=== PATIENT | female | born 1955 | race African-American/Black ===

== ENCOUNTER 2017-01-29 12:29 | Emergency (ER) | payer OTHER ==
[~2017-01-29 12:29] MED LIST: *UNABLE2; ACCUNEB INH; ACET500CAP PO; AMIT10 PO; ANTIDEPRESSANT; APRES50 PO; ASA5GR PO; ASAB PO; B-COMPLEX/1 PO; BEN25 PO; BUSPAR15 M1 PO; CAT1 PO; CAT2 PO; CAT3 PO; CELEXA10 PO; CELLCEPT5 PO; CHLORASEPTIC1.4 % PO; CIP5; CLARIT10 PO; CONSTULOSE PO; COREG PO; COREG12 PO; COREG3 PO; COREG6 PO; COUGH DROPS PO; DITRO5 PO; FL250 PO; FLAG500TAB PO; FLONASE NAS; FLORASTOR250 MG PO; HALF81 PO; IMDUR30 PO; INSNOVR SC; ISOSORB DIN30 MG PO; KENCR.1 TOP; LANTUS SC; LAXATIVE PO; LEVAQUIN750 MG PO; LEVEMIR SC; LISINOPRIL40 MG PO; LORTAB 5 PO; MAGOX4 PO; MEGACEUDL PO; NEUR100 PO; NEUR300 PO; NEXIUM40 PO; NORCO1 TA1 PO; NORCO1 TA2 PO; NORV10 PO; NORV5 PO; NORVASC PO; NOVOLOG SC; NOVOPEN SC; NYSTATPOW TOP; NYSTOP100000 MG TOP; OMNICEF300 PO; PEP20 PO; PERCOCET1 TA2 PO; PHOSLO PO; PLAVIX PO; PR25 PO; PREV30 PO; PRILO PO; PRIN10 PO; PRIN20 PO; PROAIR HFA INH; PROBIOTIC OTC PO; PROBIOTIC PO; PROTONIX PO; PROTONIX20 MG PO; PROVENTSOL INH; PROVHFA INH; PULRESP1 INH; REG5 PO; REGL PO; SALAGEN5 M1 OR; SALAGEN5 M1 PO; SENSIPAR30 M1 OR; SENSIPAR30 M1 PO; SENSIPAR30 MG PO; SODBICAR10 PO; SORB PO; SPIRIVA INH; SUCR PO; SYMBICORT 160/41 INH INH; SYMBICORT 80/4.1 INH INH; T PO; TESS PO; TRIAMCINOLON0.13 TOP; TRIAMCINOLONE C80 GM TOP; TRIDERM0.1 % TOP; ULTRAM50 PO; VALTREX1 GM PO; VANC125UDL PO; VENTOLIN HFA INH; VITE PO; VYTORIN; VYTORIN 10/40 T1 TAB PO; XENADERM60 GM T; Z-PAK PO; ZESTRIL10 MG PO; ZESTRIL30 MG PO; ZOFRAN4 PO; ZOFRAN8 PO; ZOL100 PO; ZYVOXPO PO; [UNRECOGNIZED DRUG - OTHER] PO; [UNRECOGNIZED DRUG - REMARK]; [UNRECOGNIZED DRUG - REMARK] TOP
[2017-01-29 13:19] LABS: BASOPHILS 0.1 %; BASOPHILS ABSOLUTE 0.01 10/3/uL (0.0-0.16); EOSINOPHILS 1.6 %; EOSINOPHILS ABSOLUTE 0.11 10/3/uL (0.0-0.53); ER CBC TAT 0 Hrs 03 Mins; HEMATOCRIT 24.5 % (36.0-48.0); LYMPHOCYTES 23.3 %; LYMPHOCYTES ABSOLUTE 1.56 10/3/uL (0.67-4.30); MEAN CORPUS HGB CONC 32.7 g/dL (32.0-36.0); MEAN CORPUSCULAR HEMOGLOB 32.8 pg (26.0-34.0); MEAN PLATELET VOLUME 9.6 fL (9.2-13.0); MONOCYTES ABSOLUTE 0.47 10/3/uL (0.21-1.20); NEUTROPHILS ABSOLUTE 4.54 10/3/uL (2.02-8.40); PLATELET COUNT 115 10/3/uL (150-400); RBC DISTRIBUTION WIDTH 15.3 % (12.0-16.0); RED CELL COUNT 2.44 10/6/uL (4.0-5.6); WHITE BLOOD CELLS 6.7 10/3/uL (4.5-10.5)
[2017-01-29 13:21] LABS: MANUAL DIFF NO %; MEAN CORPUSCULAR VOLUME 100.4 fL (80-100)
[2017-01-29 13:31] LABS: INTERNATIONAL NORMAL RATI 1.1 UNITS (-); PROTIME (NOT ORD) 13.8 SEC (12.0-14.5)
[2017-01-29 13:32] LABS: PARTIAL THROMBO TIME 31.9 SEC (22.5-37.2)
[2017-01-29 13:36] LABS: BUN (BLOOD UREA NITROGEN) 56 MG/DL (6-23); CALCIUM, SERUM 8.9 MG/DL (8.5-10.4); CHLORIDE, SERUM 97 MMOL/L (96-112); CO2 (CARBON DIOXIDE) 29 MMOL/L (24-34); CREATININE 6.69 MG/DL (0.55-1.02); GFR AFRICAN AMERICAN 7 ML/MIN (>=60); GFR NON AFRICAN AMERICAN 6 ML/MIN (>=60); POTASSIUM, SERUM 4.8 MMOL/L (3.5-5.3); SODIUM, SERUM 137 MMOL/L (135-148)
[2017-01-29 13:37] LABS: CHEST PAIN PROFILE TAT 0 Hrs 21 Mins; GLUCOSE, SERUM 100 MG/DL (60-99); TROPONIN I 0.09 NG/ML (<0.05)
[2017-05-03] MEDS ORDERED: COD LIVER OIL PO (15:16)
[2017-05-03] MEDS ORDERED: TRIAMCINOLONE C80 GM TOP (15:21)
[2017-05-03] MEDS ORDERED: VISINE TEARS15 ML OPH (15:21)
[2017-05-03] MEDS ORDERED: PHOSLO PO ×2 (15:22)
[2017-05-03] MEDS ORDERED: FLONASE NAS (15:22)
[2017-05-03] MEDS ORDERED: VENTOLIN HFA INH (15:22)
[2017-05-03] MEDS ORDERED: IMDUR30 PO (15:23)
[2017-05-03] MEDS ORDERED: NEUR100 PO (15:23)
[2017-05-03] MEDS ORDERED: NORV10 PO (15:23)
[2017-05-03] MEDS ORDERED: ULTRAM50 PO (15:23)
[2017-05-03] MEDS ORDERED: COREG3 PO (15:24)
[2017-05-03] MEDS ORDERED: MELATONIN5 M1 PO (15:24)
[2017-05-03] MEDS ORDERED: CONSTULOSE PO (15:24)
[2017-05-03] MEDS ORDERED: HALF81 PO (15:24)
[2017-05-03] MEDS ORDERED: SPIRIVA INH (15:25)
[2017-05-03] MEDS ORDERED: NOVOLOG SC ×2 (15:25)
[2017-05-03] MEDS ORDERED: VALTREX5 PO (15:26)
[2017-05-03] MEDS ORDERED: LANTUS SC (15:26)
[2017-05-03] MEDS ORDERED: PR25 PO (15:26)
[2017-05-03] MEDS ORDERED: PRIN10 PO (15:26)
[2017-05-03] MEDS ORDERED: VYTORIN 10/40 T1 TAB PO (15:27)
[2017-05-03] MEDS ORDERED: SENSIPAR30 M1 PO (15:27)
[2017-05-03] MEDS ORDERED: SYMBICORT 160/41 INH INH (15:27)
[2017-05-03] MEDS ORDERED: PROTONIX PO (15:27)
== END 2017-01-29 14:35 | disposition home or self-care (01) ==
LOC: ER 12:29
PROVIDERS: Emergency Medicine
DX: D64.9 Anemia, unspecified (principal); I12.9 Hypertensive chronic kidney disease with stage 1 through stage 4 chronic kidney disease, or unspecified chronic kidney disease; N18.9 Chronic kidney disease, unspecified; Z99.2 Dependence on renal dialysis; E11.22 Type 2 diabetes mellitus with diabetic chronic kidney disease; Z91.041 Radiographic dye allergy status; Z88.2 Allergy status to sulfonamides; Z88.5 Allergy status to narcotic agent; Z88.8 Allergy status to other drugs, medicaments and biological substances; Z79.82 Long term (current) use of aspirin; Z79.4 Long term (current) use of insulin
CPT/HCPCS: 36415; 71020; 80048; 83735; 84484; 85025; 85610; 85730; 86850; 86900; 86901; 86920; 93005; 99285

== ENCOUNTER 2017-02-20 07:27 | Inpatient (IN) | payer OTHER ==
--- NOTE | ~2017-02-20 | HP ---
History And Physical [id number] [place]. [address] NAME: SEAN MCCLAIN : 53 STATUS : ADM IN [facility]#: [id number] AGE: 61 ADM/REG DATE : 02/20/17 MR#: [id number] REPORT SERV DATE: 02/20/17 DICTATED BY: DATE: REPORT STATUS : Draft TRANSCRIBED BY: MODL DATE: 02/20/17 DATE OF ADMISSION: 02/20/2017 CHIEF COMPLAINT: Abdominal pain, fever, diarrhea. HISTORY OF PRESENT ILLNESS: Ms. Mcclain is a very pleasant 61-year-old black female with end- stage renal disease, who has a quite extensive past medical history that includes ischemic bowel, colonic stricture, GI bleeding, she is transfusion dependent, end-stage renal disease, not a surgical candidate in the past. She dialyzes at [facility]. She states that yesterday she was feeling well, went to get some diabetic shoes, and then while she was at the store, developed abdominal pain, described it as knotting feeling across both sides of her abdomen. She denied any fevers or chills. Then, began having diarrhea last night as well as nausea, therefore presented to the emergency department. In the emergency department, she was found to have significant elevation in lipase and LFTs. She was found to be febrile, also now she has low blood pressures in the 80s, and she has been admitted for further evaluation. PAST MEDICAL HISTORY: End-stage renal disease, COPD, diabetes, ischemic bowels; colonic stricture, not a surgical candidate; anemia, requiring transfusions routinely; obstructive sleep apnea, failed kidney transplant, diabetes, hypertension, obstructive sleep apnea, peripheral vascular disease. FAMILY MEDICAL HISTORY: Positive for CKD. SOCIAL HISTORY: She lives with sister. No tobacco, alcohol, or illicit drug use. ALLERGIES: SULFA, ACETAMINOPHEN, ADHESIVE TAPE, CHLORHEXIDINE, STRAWBERRY, LYRICA, ROBAXIN, LOOP DIURETICS. REVIEW OF SYSTEMS: 12-point review of systems obtained and is negative with the exception that in HPI. PHYSICAL EXAMINATION: VITAL SIGNS: Temperature 100.9, blood pressure 107/53, pulse 85, respiratory rate 20, O2 saturation is 96%. GENERAL: This is an ill-appearing black female. She will awake and answer questions. HEENT: Normocephalic, atraumatic. Conjunctivae clear. Sclerae anicteric. Oral mucosa is dry. She does have some periorbital edema. NECK: No lymphadenopathy. Neck veins flat. RESPIRATIONS: Even and unlabored. Breath sounds clear to auscultation. HEART: Rate is regular. Systolic murmur. No rub or gallop. ABDOMEN: Obese, soft. She has some mild tenderness across the upper abdomen especially in the epigastric region. Bowel sounds active. Abdomen is soft. EXTREMITIES: No edema, cyanosis, or clubbing. SKIN: Warm, dry, and intact. No unusual rash or skin lesions. NEURO: No generalized weakness. No focal deficits. Mood and affect, flat but appropriate. History And Physical [address] [address] NAME: SEAN MCCLAIN : 53 STATUS : ADM IN [facility]#: [id number] AGE: 61 ADM/REG DATE : 02/20/17 MR#: [id number] REPORT SERV DATE: 02/20/17 DICTATED BY: DATE: REPORT STATUS : Draft TRANSCRIBED BY: MODL DATE: 02/20/17 PERTINENT LABORATORIES AND X-RAYS: WBCs 5.5, H and H 10 and 29, platelets 99,000. Chest x- ray negative. CT of the abdomen with chronic gallbladder inflammation with pericholecystic edema and high-density continence of the gallbladder, looks to be stones, common bile duct stone cannot be excluded, looks like chronic cholecystitis, primary rectal anastomosis with wall thickening of the rectum up to 1 cm, diffuse mesenteric edema, severe atrophy of kidneys. Sodium 142, potassium 4.3, chloride 103, CO2 of 29, BUN of 80, creatinine 8.4, magnesium of 1.2, bilirubin 2, alkaline phosphatase 450, SGOT of 1780, SGPT of 1273[place] [address], troponin 0.11. IMPRESSION: 1. Abdominal pain. 2. Nausea, vomiting. 3. Diarrhea, fever. 4. Elevated LFTs. 5. Chronic cholecystitis, felt not to be a surgical candidate in the past. 6. History of ischemic bowel with colonic stricture. 7. Transfusion-dependent anemia. 8. End stage renal disease. PLAN: Admit antibiotics, GI consult, blood cultures. We would try to clarify code status, for now she is a full code. Further orders and recommendations pending clinical course. JUAN M/NAKIA JANI Bunn / [id number] CC: Adarsh Bruce M.D.
--- NOTE | ~2017-02-20 | CN ---
Consultation Report [facility] [address] [place]. [address] NAME: SEAN HAQUE : 53 STATUS : ADM IN PAT#: [id number] AGE: 61 ADM/REG DATE : 02/20/17 MR#: [id number] REPORT SERV DATE: 02/21/17 DICTATED BY: EILEEN MCKEON DATE: 02/21/17 REPORT STATUS : Draft TRANSCRIBED BY: MODL DATE: 02/21/17 GI CONSULTATION DATE OF CONSULTATION: 02/21/2017 REASON FOR CONSULTATION: Elevated liver enzymes, elevated lipase. HISTORY OF PRESENT ILLNESS: Ms. Haque is a 61-year-old black female with a history of end- stage renal disease, on hemodialysis; history of iron-deficiency anemia for which she has been followed by Dr. Monty Hoffman for further evaluation of this and ischemic colitis. She also has a colonic stricture chronically and has been deemed not a surgical candidate for further management. She was admitted to [facility] on 02/20/2017 with acute onset of abdominal pain and diarrhea. This occurred after she had 2 episodes of syncope, the latter of which she was at dialysis and noted to have a systolic blood pressure in the 80s. At home, her sister, with whom she lives, said she was unresponsive and at dialysis, she also became unresponsive. She had been afebrile. Her white count is 6.8. Her liver enzymes were found to be very elevated for which GI was consulted. Her bilirubin yesterday was 2, AST 1780, ALT 4273, alkaline phosphatase 450, lipase 42498. Today, her bilirubin is 3, AST 504, ALT 681, alkaline phosphatase 383. Viral hepatitis panel was drawn and is pending at this time. Ultrasound was also performed, but report is pending and imaging are pending at this time. CT scan showed normal-appearing liver. Gallbladder was at the upper limit of normal with requiring distention at 3.4 cm. There was some pericholecystic inflammation with stranding at the neck, which is unchanged from her imaging in May 2016. She did not have any distended loops of small bowel. Her stomach was mildly distended, but the colonic wall thickening at the anastomosis measured about 1 cm, was actually noted to be improved from her May 2016 imaging. Currently, her vital signs are stable, blood pressure is 120s over 80s, heart rate is in the 70s. She is admitted to the [facility]. PAST MEDICAL HISTORY: End-stage renal disease, on hemodialysis; iron deficiency anemia; ischemic colitis; gallbladder abscess with drainage; COPD; diabetes; hypertension; morbid obesity with obstructive sleep apnea; peripheral vascular disease; chronic colonic stricture; and history of C. diff in the past. PAST SURGICAL HISTORY: Hysterectomy, and failed kidney transplant. SOCIAL HISTORY: Denies any smoking, alcohol, or drug use. FAMILY HISTORY: No GI disease. MEDICATIONS: Reviewed. ALLERGIES: REVIEWED. PHYSICAL EXAMINATION: Consultation Report [address] [place]. [address] NAME: SEAN HAQUE : 53 STATUS : ADM IN [facility]#: [id number] AGE: 61 ADM/REG DATE : 02/20/17 MR#: [id number] REPORT SERV DATE: 02/21/17 DICTATED BY: EILEEN MCKEON DATE: 02/21/17 REPORT STATUS : Draft TRANSCRIBED BY: NAKIA DATE: 02/21/17 VITAL SIGNS: The patient is afebrile. Her vital signs have been stable. GENERAL: The patient is awake, alert, and oriented x3. Morbidly obese, in no acute distress. HEENT: Atraumatic, normocephalic. Anicteric. Mucous membranes moist. CARDIAC: S1, S2. CHEST: Clear. ABDOMEN: Soft. Minimal tenderness to palpation without any rebound or guarding, mostly in the epigastrium. Bowel sounds normoactive. LABORATORY DATA: Show WBC 6.8, hemoglobin 8.3, hematocrit 24.8, MCV is 96, platelets 89. Sodium 143, potassium 4.2, chloride 106, bicarbonate 30, BUN 38, creatinine 5.76, glucose 112, INR 1.3. Bilirubin 3, AST 504, ALT 681, alkaline phosphatase 383, lipase from yesterday [address]. No repeat drawn. CT scan as described above. IMPRESSION AND PLAN: Elevated liver enzymes, most likely secondary to ischemic hepatitis, very few causes of hypertransaminasemia as high as hers were yesterday, that being ischemic hepatitis/hypotension, acute viral hepatitis, toxic injury. Awaiting ultrasound performed and awaiting viral hepatitis panel; however, given the patient's clinical history with syncope and hypotension, with an underlying peripheral vascular disease, diabetes, hypertension, and end-stage renal disease, this is most likely the etiology. Continue supportive care. Follow up on studies already ordered. We will also check lipase and trend this, and PT/INR for evaluation of liver function. Okay to start clear liquid renal diet at this time. CS/MODL Eileen Mckeon MD / [id number] CC: Daryl Pedraza M.D.
--- NOTE | ~2017-02-20 | DS ---
Discharge Summary [facility] [address] [place]. [address] NAME: SEAN MCCLAIN : 53 STATUS : DIS IN PAT#: [id number] AGE: 61 ADM/REG DATE : 02/20/17 MR#: [id number] REPORT SERV DATE: 03/10/17 DICTATED BY: MERY PEDRAZA DATE: 03/10/17 REPORT STATUS : Draft TRANSCRIBED BY: NAKIA DATE: 03/10/17 Data Collection from hospitalization DISCHARGE DIAGNOSES: 1. Fluid retention/noncompliance. 2. Oqt-vwtpitg-ueekpmgta diabetes. 3. Obesity. 4. Hypertension. 5. End-stage renal disease. 6. History of ischemic bowel. 7. Anemia. 8. Obstructive sleep apnea. 9. History of failed kidney transplant. 10.Peripheral vascular disease. CONSULTATION: Dr. Becky Spears. PROCEDURES PERFORMED: 1. CT scan of the abdomen and pelvis without contrast, 02/20/2017. 2. Abdominal ultrasound, 02/21/2017. 3. Venous Doppler ultrasound of the right upper extremity, 02/24/2017. DISCHARGE MEDICATIONS: Halfprin 80 mg daily, Coreg 6.25 mg twice a day, Flonase nasal spray one spray nasally twice a day, Neurontin 100 mg four times a day, Lantus 18 units subcutaneously at bedtime, Isordil 30 mg twice a day, lactulose 30 mL three times a day, Prinivil 30 mg daily, Protonix 40 mg daily, phosphorus 250 mg twice a day for seven days, Benadryl 25 mg every eight hours as needed, [place] 10/325 one tablet three times a day as needed, and Spiriva HandiHaler one capsule via inhaler daily. CONDITION AT DISCHARGE: Stable. DISPOSITION: The patient was discharged to [facility] with diet and activities as instructed. HOSPITAL COURSE: This is a 61-year-old female, who has end-stage renal disease, who has a quite extensive past medical history, including ischemic bowel, colon stricture, GI bleeding. She is transfusion dependent with end-stage renal disease. She had not been a surgical candidate in the past. She dialyzes at [facility] on [facility]. She states that on the day prior to this admission, she felt well and went to get some diabetic shoes. While she was at the store, she developed abdominal pain and described it as a knot feeling across the sides of her abdomen. She denied any fever or chills. She then began to have diarrhea as well as nausea and presented to the emergency department. In the emergency department, she was found to have significant elevation in lipase and liver function tests. She was found to be febrile and also had a low blood pressure in the 80s. She was admitted to the hospital at this time for further evaluation and treatment. Upon admission, a CT scan of the abdomen revealed chronic gallbladder inflammation with pericholecystic edema and high density continence of the gallbladder with what looked to be Discharge Summary [id number] [facility] [place]. [address] NAME: SEAN MCCLAIN : 53 STATUS : DIS IN PAT#: [id number] AGE: 61 ADM/REG DATE : 02/20/17 MR#: [id number] REPORT SERV DATE: 03/10/17 DICTATED BY: MERY PEDRAZA DATE: 03/10/17 REPORT STATUS : Draft TRANSCRIBED BY: NAKIA DATE: 03/10/17 stones. A common bile duct stone could not be excluded. This looks like chronic cholecystitis. There was primary rectal anastomosis with wall thickening of the rectum up to 1 cm and diffuse mesenteric edema and severe atrophy of the kidneys. Creatinine level was 8.4. Blood cultures were obtained. The following day, she was seen by Dr. Becky Spears regarding elevated liver enzymes and elevated lipase. The patient was currently in the IMCU. The elevated liver enzymes were felt most likely secondary to ischemic hepatitis. There were very few causes of hypertransaminasemia as high as hers was the day previously- that being ischemic hepatitis/hypotension, acute viral hepatitis or toxic injury. An ultrasound of the abdomen was performed. We were awaiting a viral hepatitis panel. It was felt that this was the most likely etiology. Supportive care continued. Lipase was going to be checked and would be trended. A clear liquid diet was going to began. On 02/22/2017, she was up sitting in a chair. She was tolerating clear liquids. She was going to be transferred to the floor. The next day, dialysis therapy was performed. She was in no acute distress. Lipase was going to be rechecked. Her diet was advanced. She had no nausea, vomiting, or diarrhea. PhosLo was discontinued. A venous Doppler ultrasound of the right upper extremity was performed. This was normal. On 02/25/2017, she did complain of some shortness of breath and chest pain that morning. Her abdomen was distended. Lipase level was now 306. Troponins were going to be checked. Hemodialysis therapy continued. The patient is morbidly obese. The patient was on fluid restriction. Antibiotics were discontinued. She was evaluated by Occupational and Physical Therapy. Over the next couple of days, she continued to progress. Discharge planning was performed. On 02/28/2017, discharge instructions were given. Due to her improved and stable condition, she was discharged to [facility] with the above-stated instructions. Information collected by: Franca Cabral I submit the above information as my discharge summary. ELIO/NAKIA Mery Pedraza M.D. / [id number] CC: Adarsh Bruce M.D. [facility] Becky Spears MD
[2017-02-20 07:39] LABS: BASOPHILS 0.2 %; BASOPHILS ABSOLUTE 0.01 10/3/uL (0.0-0.16); EOSINOPHILS 0.6 %; EOSINOPHILS ABSOLUTE 0.03 10/3/uL (0.0-0.53); IMMATURE GRANULOCYTES 0.6 %; IMMATURE GRANULOCYTES ABSOLUTE 0.03 10/3/uL (0.0-0.11); LYMPHOCYTES 6.8 %; LYMPHOCYTES ABSOLUTE 0.37 10/3/uL (0.67-4.30); MEAN CORPUS HGB CONC 33.8 g/dL (32.0-36.0); MEAN CORPUSCULAR HEMOGLOB 32.6 pg (26.0-34.0); MEAN PLATELET VOLUME 10.2 fL (9.2-13.0); MONOCYTES 7.5 %; MONOCYTES ABSOLUTE 0.41 10/3/uL (0.21-1.20); NEUTROPHILS 84.3 %; PLATELET COUNT 99 10/3/uL (150-400); RBC DISTRIBUTION WIDTH 15.1 % (12.0-16.0); WHITE BLOOD CELLS 5.5 10/3/uL (4.5-10.5)
[2017-02-20 07:40] LABS: HEMATOCRIT 29.6 % (36.0-48.0); MANUAL DIFF NO %; MEAN CORPUSCULAR VOLUME 96.4 fL (80-100); RED CELL COUNT 3.07 10/6/uL (4.0-5.6)
[2017-02-20 07:45] LABS: INTERNATIONAL NORMAL RATI 1.3 UNITS (-); PARTIAL THROMBO TIME 28.5 SEC (22.5-37.2); PROTIME (NOT ORD) 15.6 SEC (12.0-14.5)
[2017-02-20 08:02] LABS: A/G RATIO 0.7 (0.7-1.9); ALBUMIN 2.9 G/DL (3.5-5.0); CALCIUM, SERUM 9.2 MG/DL (8.5-10.4); CHLORIDE, SERUM 103 MMOL/L (96-112); CO2 (CARBON DIOXIDE) 29 MMOL/L (24-34); POTASSIUM, SERUM 4.3 MMOL/L (3.5-5.3); SGOT(AST) 1780 U/L (5-40); SGPT(ALT) 1273 U/L (5-65); SODIUM, SERUM 142 MMOL/L (135-148); TOTAL PROTEIN 6.9 G/DL (6.0-8.5)
[2017-02-20 08:03] LABS: ALKALINE PHOSPHATASE 450 U/L (45-117); BUN (BLOOD UREA NITROGEN) 80 MG/DL (6-23); CREATININE 8.48 MG/DL (0.55-1.02); GFR AFRICAN AMERICAN 5 ML/MIN (>=60); GFR NON AFRICAN AMERICAN 5 ML/MIN (>=60); GLUCOSE, SERUM 129 MG/DL (60-99)
[2017-02-20 08:04] LABS: CHEST PAIN PROFILE TAT 0 Hrs 31 Mins; TROPONIN I 0.11 NG/ML (<0.05)
[2017-02-20 08:50] LABS: INFLUENZA A SCREEN NEGATIVE (NEGATIVE); INFLUENZA B SCREEN NEGATIVE (NEGATIVE)
[2017-02-20] MEDS ORDERED: NORV10 PO (09:18)
[2017-02-20] MEDS ORDERED: COREG6 PO (09:19)
[2017-02-20] MEDS ORDERED: BEN25 PO (09:19)
[2017-02-20] MEDS ORDERED: HALF81 PO (09:19)
[2017-02-20] MEDS ORDERED: LANTUS SC (09:20)
[2017-02-20] MEDS ORDERED: ISOSORB DIN30 MG PO (09:20)
[2017-02-20] MEDS ORDERED: NEUR100 PO (09:20)
[2017-02-20] MEDS ORDERED: FLONASE NAS (09:20)
[2017-02-20] MEDS ORDERED: NOVOLOG SC (09:23)
[2017-02-20] MEDS ORDERED: PHOSLO PO (09:23)
[2017-02-20] MEDS ORDERED: PRIN10 PO (09:23)
[2017-02-20] MEDS ORDERED: SPIRIVA INH (09:24)
[2017-02-20] MEDS ORDERED: FLORASTOR250 MG PO (09:24)
[2017-02-20] MEDS ORDERED: SENSIPAR30 M1 PO (09:24)
[2017-02-20] MEDS ORDERED: PROTONIX PO (09:24)
[2017-02-20] MEDS ORDERED: NORCO1 TAB PO (09:25)
[2017-02-20] MEDS ORDERED: VYTORIN 10/40 T1 TAB PO (09:25)
[2017-02-20] MEDS ORDERED: ZOFRAN8 PO (09:25)
[2017-02-20 19:26] LABS: ALLENS TEST Pos; BE (BASE EXCESS) 4.7 MEQ/L (0 +/- 2.5); CARBOXYHEMOGLOBIN 0.2 % (0-3); DEVICE NRB; HCO3 (ACTUAL BICARBONATE) 28.7 MEQ/L (23-27); HEMOBLOGIN CONTENT 8.7 G/DL (12-16); INSTRUMENT SERIAL # 8083; METHEMOGLOBIN 0.1 % (0-3); O2 CONTENT 12.3 VOL% (18-24); OPERATOR ID 16469; PCO2 (CO2 TENSION) 40 MMHG (35-45); PO2 (O2 TENSION) 225 MMHG (79-93); SAMPLE Arterial; pH 7.47 (7.37-7.43)
[2017-02-21 09:14] LABS: BASOPHILS 0.1 %; BASOPHILS ABSOLUTE 0.01 10/3/uL (0.0-0.16); EOSINOPHILS 1.6 %; EOSINOPHILS ABSOLUTE 0.11 10/3/uL (0.0-0.53); HEMOGLOBIN 8.3 g/dL (12.0-16.0); IMMATURE GRANULOCYTES 0.1 %; IMMATURE GRANULOCYTES ABSOLUTE 0.01 10/3/uL (0.0-0.11); LYMPHOCYTES 8.6 %; LYMPHOCYTES ABSOLUTE 0.58 10/3/uL (0.67-4.30); MEAN CORPUS HGB CONC 33.5 g/dL (32.0-36.0); MEAN CORPUSCULAR HEMOGLOB 32.3 pg (26.0-34.0); MEAN CORPUSCULAR VOLUME 96.5 fL (80-100); MEAN PLATELET VOLUME 10.4 fL (9.2-13.0); MONOCYTES 6.5 %; MONOCYTES ABSOLUTE 0.44 10/3/uL (0.21-1.20); NEUTROPHILS 83.1 %; NEUTROPHILS ABSOLUTE 5.62 10/3/uL (2.02-8.40); PLATELET COUNT 89 10/3/uL (150-400); RBC DISTRIBUTION WIDTH 15.4 % (12.0-16.0); RED CELL COUNT 2.57 10/6/uL (4.0-5.6); WHITE BLOOD CELLS 6.8 10/3/uL (4.5-10.5)
[2017-02-21 09:16] LABS: HEMATOCRIT 24.8 % (36.0-48.0); MANUAL DIFF NO %
[2017-02-21 09:30] LABS: A/G RATIO 0.8 (0.7-1.9); ALBUMIN 2.7 G/DL (3.5-5.0); ALKALINE PHOSPHATASE 383 U/L (45-117); BUN (BLOOD UREA NITROGEN) 38 MG/DL (6-23); CALCIUM, SERUM 8.8 MG/DL (8.5-10.4); CHLORIDE, SERUM 106 MMOL/L (96-112); CO2 (CARBON DIOXIDE) 30 MMOL/L (24-34); CREATININE 5.76 MG/DL (0.55-1.02); GFR AFRICAN AMERICAN 8 ML/MIN (>=60); GFR NON AFRICAN AMERICAN 7 ML/MIN (>=60); GLOBULIN 3.6 G/DL (2.5-4.1); GLUCOSE, SERUM 112 MG/DL (60-99); POTASSIUM, SERUM 4.2 MMOL/L (3.5-5.3); SGOT(AST) 504 U/L (5-40); SGPT(ALT) 681 U/L (5-65); SODIUM, SERUM 143 MMOL/L (135-148); TOTAL PROTEIN 6.3 G/DL (6.0-8.5)
[2017-02-21 14:57] LABS: HEPATITIS C ANTIBODY NON-REACTIVE (NON-REACT)
[2017-02-22 05:16] LABS: BASOPHILS 0.2 %; BASOPHILS ABSOLUTE 0.01 10/3/uL (0.0-0.16); EOSINOPHILS 2.3 %; EOSINOPHILS ABSOLUTE 0.13 10/3/uL (0.0-0.53); HEMATOCRIT 24.8 % (36.0-48.0); HEMOGLOBIN 8.2 g/dL (12.0-16.0); IMMATURE GRANULOCYTES 0.2 %; IMMATURE GRANULOCYTES ABSOLUTE 0.01 10/3/uL (0.0-0.11); LYMPHOCYTES 10.6 %; LYMPHOCYTES ABSOLUTE 0.61 10/3/uL (0.67-4.30); MEAN CORPUS HGB CONC 33.1 g/dL (32.0-36.0); MEAN CORPUSCULAR HEMOGLOB 32.3 pg (26.0-34.0); MEAN CORPUSCULAR VOLUME 97.6 fL (80-100); MEAN PLATELET VOLUME 10.5 fL (9.2-13.0); MONOCYTES 7.1 %; MONOCYTES ABSOLUTE 0.41 10/3/uL (0.21-1.20); NEUTROPHILS 79.6 %; NEUTROPHILS ABSOLUTE 4.57 10/3/uL (2.02-8.40); PLATELET COUNT 82 10/3/uL (150-400); RBC DISTRIBUTION WIDTH 15.5 % (12.0-16.0); RED CELL COUNT 2.54 10/6/uL (4.0-5.6); WHITE BLOOD CELLS 5.7 10/3/uL (4.5-10.5)
[2017-02-22 05:19] LABS: MANUAL DIFF NO %
[2017-02-22 05:20] LABS: INTERNATIONAL NORMAL RATI 1.3 UNITS (-)
[2017-02-22 05:36] LABS: ALBUMIN 2.4 G/DL (3.5-5.0); ALKALINE PHOSPHATASE 433 U/L (45-117); BUN (BLOOD UREA NITROGEN) 47 MG/DL (6-23); CALCIUM, SERUM 9.1 MG/DL (8.5-10.4); CHLORIDE, SERUM 101 MMOL/L (96-112); CO2 (CARBON DIOXIDE) 23 MMOL/L (24-34); CREATININE 7.42 MG/DL (0.55-1.02); DIRECT BILIRUBIN 2.5 MG/DL (0.0-0.4); GFR AFRICAN AMERICAN 6 ML/MIN (>=60); GFR NON AFRICAN AMERICAN 5 ML/MIN (>=60); GLUCOSE, SERUM 143 MG/DL (60-99); INDIRECT BILIRUBIN(NOT ORDER) 0.6 MG/DL (0.1-0.9); PHOSPHORUS, SERUM 1.7 MG/DL (2.5-4.5); POTASSIUM, SERUM 4.4 MMOL/L (3.5-5.3); SGOT(AST) 255 U/L (5-40); SGPT(ALT) 461 U/L (5-65); SODIUM, SERUM 137 MMOL/L (135-148); TOTAL BILIRUBIN 3.1 MG/DL (0-1.2); TOTAL PROTEIN 6.7 G/DL (6.0-8.5)
[2017-02-22 09:14] LABS: BASOPHILS 0.2 %; BASOPHILS ABSOLUTE 0.01 10/3/uL (0.0-0.16); EOSINOPHILS 1.6 %; EOSINOPHILS ABSOLUTE 0.09 10/3/uL (0.0-0.53); HEMOGLOBIN 9.1 g/dL (12.0-16.0); IMMATURE GRANULOCYTES 0.4 %; IMMATURE GRANULOCYTES ABSOLUTE 0.02 10/3/uL (0.0-0.11); LYMPHOCYTES 11.6 %; LYMPHOCYTES ABSOLUTE 0.66 10/3/uL (0.67-4.30); MANUAL DIFF NO %; MEAN CORPUS HGB CONC 33.7 g/dL (32.0-36.0); MEAN CORPUSCULAR HEMOGLOB 32.5 pg (26.0-34.0); MEAN CORPUSCULAR VOLUME 96.4 fL (80-100); MEAN PLATELET VOLUME 10.4 fL (9.2-13.0); MONOCYTES 5.1 %; MONOCYTES ABSOLUTE 0.29 10/3/uL (0.21-1.20); NEUTROPHILS 81.1 %; NEUTROPHILS ABSOLUTE 4.64 10/3/uL (2.02-8.40); PLATELET COUNT 84 10/3/uL (150-400); RBC DISTRIBUTION WIDTH 15.4 % (12.0-16.0); WHITE BLOOD CELLS 5.7 10/3/uL (4.5-10.5)
[2017-02-23 10:48] LABS: HEPATITIS B SURFACE ANTIGEN NON-REACTIVE (NON-REACT)
[2017-02-23 11:10] LABS: HEPATITIS B CORE AB IGM NON-REACTIVE (NON-REAC)
[2017-02-23 11:11] LABS: HEP A ANTIBODY IGM NON-REACTIVE (NON-REACT)
[2017-02-24 04:50] LABS: BASOPHILS 0.4 %; BASOPHILS ABSOLUTE 0.02 10/3/uL (0.0-0.16); EOSINOPHILS 1.4 %; EOSINOPHILS ABSOLUTE 0.08 10/3/uL (0.0-0.53); HEMOGLOBIN 7.9 g/dL (12.0-16.0); IMMATURE GRANULOCYTES 0.7 %; IMMATURE GRANULOCYTES ABSOLUTE 0.04 10/3/uL (0.0-0.11); LYMPHOCYTES 10.9 %; LYMPHOCYTES ABSOLUTE 0.61 10/3/uL (0.67-4.30); MEAN CORPUS HGB CONC 33.3 g/dL (32.0-36.0); MEAN PLATELET VOLUME 9.9 fL (9.2-13.0); MONOCYTES 11.1 %; MONOCYTES ABSOLUTE 0.62 10/3/uL (0.21-1.20); NEUTROPHILS 75.5 %; NEUTROPHILS ABSOLUTE 4.23 10/3/uL (2.02-8.40); PLATELET COUNT 89 10/3/uL (150-400); RED CELL COUNT 2.47 10/6/uL (4.0-5.6); WHITE BLOOD CELLS 5.6 10/3/uL (4.5-10.5)
[2017-02-24 04:51] LABS: HEMATOCRIT 23.7 % (36.0-48.0); MANUAL DIFF NO %
[2017-02-24 05:11] LABS: ALBUMIN 2.2 G/DL (3.5-5.0); ALKALINE PHOSPHATASE 555 U/L (45-117); BUN (BLOOD UREA NITROGEN) 31 MG/DL (6-23); CALCIUM, SERUM 9.1 MG/DL (8.5-10.4); CHLORIDE, SERUM 106 MMOL/L (96-112); CO2 (CARBON DIOXIDE) 26 MMOL/L (24-34); CREATININE 5.98 MG/DL (0.55-1.02); DIRECT BILIRUBIN 1.6 MG/DL (0.0-0.4); GFR AFRICAN AMERICAN 8 ML/MIN (>=60); GFR NON AFRICAN AMERICAN 7 ML/MIN (>=60); GLUCOSE, SERUM 134 MG/DL (60-99); INDIRECT BILIRUBIN(NOT ORDER) 0.8 MG/DL (0.1-0.9); PHOSPHORUS, SERUM 2.5 MG/DL (2.5-4.5); POTASSIUM, SERUM 4.2 MMOL/L (3.5-5.3); SGOT(AST) 51 U/L (5-40); SGPT(ALT) 219 U/L (5-65); SODIUM, SERUM 141 MMOL/L (135-148); TOTAL BILIRUBIN 2.4 MG/DL (0-1.2); TOTAL PROTEIN 6.8 G/DL (6.0-8.5)
[2017-02-24 05:13] LABS: INTERNATIONAL NORMAL RATI 1.2 UNITS (-)
[2017-02-25 08:51] LABS: BASOPHILS 1.1 %; BASOPHILS ABSOLUTE 0.08 10/3/uL (0.0-0.16); EOSINOPHILS 1.5 %; EOSINOPHILS ABSOLUTE 0.11 10/3/uL (0.0-0.53); HEMATOCRIT 22.5 % (36.0-48.0); HEMOGLOBIN 7.5 g/dL (12.0-16.0); IMMATURE GRANULOCYTES 0.8 %; IMMATURE GRANULOCYTES ABSOLUTE 0.06 10/3/uL (0.0-0.11); LYMPHOCYTES 14.3 %; LYMPHOCYTES ABSOLUTE 1.02 10/3/uL (0.67-4.30); MEAN CORPUS HGB CONC 33.3 g/dL (32.0-36.0); MEAN CORPUSCULAR HEMOGLOB 32.2 pg (26.0-34.0); MEAN CORPUSCULAR VOLUME 96.6 fL (80-100); MEAN PLATELET VOLUME 10.1 fL (9.2-13.0); MONOCYTES 7.4 %; MONOCYTES ABSOLUTE 0.53 10/3/uL (0.21-1.20); NEUTROPHILS 74.9 %; NEUTROPHILS ABSOLUTE 5.34 10/3/uL (2.02-8.40); PLATELET COUNT 102 10/3/uL (150-400); RED CELL COUNT 2.33 10/6/uL (4.0-5.6); WHITE BLOOD CELLS 7.1 10/3/uL (4.5-10.5)
[2017-02-25 08:52] LABS: MANUAL DIFF NO %
[2017-02-25 08:58] LABS: CALCIUM, SERUM 9.3 MG/DL (8.5-10.4); CHLORIDE, SERUM 101 MMOL/L (96-112); CO2 (CARBON DIOXIDE) 25 MMOL/L (24-34); PHOSPHORUS, SERUM 2.6 MG/DL (2.5-4.5); POTASSIUM, SERUM 4.8 MMOL/L (3.5-5.3); SODIUM, SERUM 137 MMOL/L (135-148)
[2017-02-25 09:00] LABS: BUN (BLOOD UREA NITROGEN) 46 MG/DL (6-23); CREATININE 8.11 MG/DL (0.55-1.02); GFR AFRICAN AMERICAN 6 ML/MIN (>=60); GFR NON AFRICAN AMERICAN 5 ML/MIN (>=60); GLUCOSE, SERUM 199 MG/DL (60-99)
[2017-02-25 12:00] LABS: TROPONIN I 0.06 NG/ML (<0.05)
[2017-02-26 08:29] LABS: HEMATOCRIT 22.4 % (36.0-48.0); HEMOGLOBIN 7.5 g/dL (12.0-16.0); MANUAL DIFF YES %; MEAN CORPUS HGB CONC 33.5 g/dL (32.0-36.0); MEAN CORPUSCULAR HEMOGLOB 32.3 pg (26.0-34.0); MEAN CORPUSCULAR VOLUME 96.6 fL (80-100); MEAN PLATELET VOLUME 9.8 fL (9.2-13.0); PLATELET COUNT 118 10/3/uL (150-400); RBC DISTRIBUTION WIDTH 15.3 % (12.0-16.0); RED CELL COUNT 2.32 10/6/uL (4.0-5.6); WHITE BLOOD CELLS 5.9 10/3/uL (4.5-10.5)
[2017-02-26 08:41] LABS: ALBUMIN 2.1 G/DL (3.5-5.0); CHLORIDE, SERUM 103 MMOL/L (96-112); CO2 (CARBON DIOXIDE) 26 MMOL/L (24-34); GLUCOSE, SERUM 178 MG/DL (60-99); POTASSIUM, SERUM 4.5 MMOL/L (3.5-5.3); SGOT(AST) 26 U/L (5-40); SGPT(ALT) 113 U/L (5-65); SODIUM, SERUM 138 MMOL/L (135-148); TOTAL PROTEIN 7.1 G/DL (6.0-8.5)
[2017-02-26 08:42] LABS: A/G RATIO 0.4 (0.7-1.9); ALKALINE PHOSPHATASE 612 U/L (45-117); BUN (BLOOD UREA NITROGEN) 31 MG/DL (6-23); CREATININE 6.35 MG/DL (0.55-1.02); GFR AFRICAN AMERICAN 7 ML/MIN (>=60); GFR NON AFRICAN AMERICAN 6 ML/MIN (>=60); TOTAL BILIRUBIN 1.1 MG/DL (0-1.2); TROPONIN I 0.05 NG/ML (<0.05)
[2017-02-26 08:51] LABS: BAND NEUTROPHILS 9 %; LYMPHOCYTES 17 %; MONOCYTES 6 %; MONOCYTES ABSOLUTE (CALC) 0.35 10/3/uL (0.21-1.20); NEUTROPHILS ABSOLUTE (CALC) 4.43 10/3/uL (2.02-8.40); PLASMA CELL 2 % (0); REACTIVE LYMPHS OCC (0-2%) (0-5%); SEGMENTED NEUTROPHIL (0) 66 %; TOTAL NUCLEATED CELLS 100
[2017-02-26 08:52] LABS: ATYPICAL LYMPH OCC (0-2%) (0-5%); PLATELET ESTIMATE SLT DEC (ADEQUATE); POLYCHROMASIA 1+ (2-5/OIF) (0-1/OIF)
[2017-02-27 15:37] LABS: BASOPHILS 0.5 %; BASOPHILS ABSOLUTE 0.02 10/3/uL (0.0-0.16); EOSINOPHILS 1.4 %; EOSINOPHILS ABSOLUTE 0.05 10/3/uL (0.0-0.53); HEMATOCRIT 23.6 % (36.0-48.0); HEMOGLOBIN 7.6 g/dL (12.0-16.0); IMMATURE GRANULOCYTES 1.6 %; IMMATURE GRANULOCYTES ABSOLUTE 0.06 10/3/uL (0.0-0.11); LYMPHOCYTES 26.1 %; LYMPHOCYTES ABSOLUTE 0.95 10/3/uL (0.67-4.30); MANUAL DIFF NO %; MEAN CORPUS HGB CONC 32.2 g/dL (32.0-36.0); MEAN CORPUSCULAR HEMOGLOB 31.5 pg (26.0-34.0); MEAN CORPUSCULAR VOLUME 97.9 fL (80-100); MEAN PLATELET VOLUME 9.8 fL (9.2-13.0); MONOCYTES 4.7 %; MONOCYTES ABSOLUTE 0.17 10/3/uL (0.21-1.20); NEUTROPHILS 65.7 %; NEUTROPHILS ABSOLUTE 2.39 10/3/uL (2.02-8.40); PLATELET COUNT 140 10/3/uL (150-400); RBC DISTRIBUTION WIDTH 15.5 % (12.0-16.0); RED CELL COUNT 2.41 10/6/uL (4.0-5.6); WHITE BLOOD CELLS 3.6 10/3/uL (4.5-10.5)
[2017-02-27 15:52] LABS: CALCIUM, SERUM 9.1 MG/DL (8.5-10.4); CHLORIDE, SERUM 105 MMOL/L (96-112); CO2 (CARBON DIOXIDE) 29 MMOL/L (24-34); POTASSIUM, SERUM 4.2 MMOL/L (3.5-5.3); SODIUM, SERUM 141 MMOL/L (135-148)
[2017-02-27 15:53] LABS: ALBUMIN 2.6 G/DL (3.5-5.0); BUN (BLOOD UREA NITROGEN) 26 MG/DL (6-23); GFR AFRICAN AMERICAN 9 ML/MIN (>=60); GFR NON AFRICAN AMERICAN 8 ML/MIN (>=60); GLUCOSE, SERUM 307 MG/DL (60-99); PHOSPHORUS, SERUM 3.4 MG/DL (2.5-4.5)
[2017-02-27] MEDS ORDERED: PHOSPHA 250 PO (17:35)
[2017-02-27] MEDS ORDERED: NOVOLOG SC (17:41)
[2017-02-27] MEDS ORDERED: CONSTULOSE PO (17:45)
[2017-05-03] MEDS ORDERED: COD LIVER OIL PO (15:16)
[2017-05-03] MEDS ORDERED: VISINE TEARS15 ML OPH (15:21)
[2017-05-03] MEDS ORDERED: TRIAMCINOLONE C80 GM TOP (15:21)
[2017-05-03] MEDS ORDERED: FLONASE NAS (15:22)
[2017-05-03] MEDS ORDERED: PHOSLO PO ×2 (15:22)
[2017-05-03] MEDS ORDERED: VENTOLIN HFA INH (15:22)
[2017-05-03] MEDS ORDERED: ULTRAM50 PO (15:23)
[2017-05-03] MEDS ORDERED: NEUR100 PO (15:23)
[2017-05-03] MEDS ORDERED: NORV10 PO (15:23)
[2017-05-03] MEDS ORDERED: IMDUR30 PO (15:23)
[2017-05-03] MEDS ORDERED: HALF81 PO (15:24)
[2017-05-03] MEDS ORDERED: MELATONIN5 M1 PO (15:24)
[2017-05-03] MEDS ORDERED: COREG3 PO (15:24)
[2017-05-03] MEDS ORDERED: CONSTULOSE PO (15:24)
[2017-05-03] MEDS ORDERED: SPIRIVA INH (15:25)
[2017-05-03] MEDS ORDERED: NOVOLOG SC ×2 (15:25)
[2017-05-03] MEDS ORDERED: PRIN10 PO (15:26)
[2017-05-03] MEDS ORDERED: LANTUS SC (15:26)
[2017-05-03] MEDS ORDERED: PR25 PO (15:26)
[2017-05-03] MEDS ORDERED: VALTREX5 PO (15:26)
[2017-05-03] MEDS ORDERED: SENSIPAR30 M1 PO (15:27)
[2017-05-03] MEDS ORDERED: VYTORIN 10/40 T1 TAB PO (15:27)
[2017-05-03] MEDS ORDERED: PROTONIX PO (15:27)
[2017-05-03] MEDS ORDERED: SYMBICORT 160/41 INH INH (15:27)
== END 2017-02-28 14:57 | DRG 441 ==
LOC: ER 07:27 → 4SO 09:02 → IMCU 17:15 → 7NO 02-22 15:36
PROVIDERS: Emergency Medicine; Internal Medicine Gastroenterology; Internal Medicine Nephrology; Obstetrics & Gynecology; Physician Assistant
DX: B17.9 Acute viral hepatitis, unspecified (principal); N18.6 End stage renal disease; K85.90 Acute pancreatitis without necrosis or infection, unspecified; E11.22 Type 2 diabetes mellitus with diabetic chronic kidney disease; I12.0 Hypertensive chronic kidney disease with stage 5 chronic kidney disease or end stage renal disease; K81.9 Cholecystitis, unspecified; Z68.41 Body mass index [BMI] 40.0-44.9, adult; E66.01 Morbid (severe) obesity due to excess calories; R10.9 Unspecified abdominal pain; R11.2 Nausea with vomiting, unspecified; R19.7 Diarrhea, unspecified; J44.9 Chronic obstructive pulmonary disease, unspecified; I73.9 Peripheral vascular disease, unspecified; Z90.710 Acquired absence of both cervix and uterus; D50.9 Iron deficiency anemia, unspecified; Z99.2 Dependence on renal dialysis; G47.33 Obstructive sleep apnea (adult) (pediatric); Z88.2 Allergy status to sulfonamides; Z91.018 Allergy to other foods
CPT/HCPCS: 36600; 71010; 74176; 76700; 80048; 80053; 80069; 80074; 80076; 80202; 82805; 82962; 83690; 83735; 84484; 85025; 85610; 85730; 87804; 93005; 93971; 94640; 97110-GO; 97116-GP; 97162-GP; 97165-GO; 97535-GO; 99285; A9270-GY; G0257; G8978-CK-GP; G8979-CJ-GP; J0885; J1885; J2405; J2543; J3370; J3475; P9047